=== PATIENT | male | born 1990 | race African-American/Black ===

== ENCOUNTER 2017-04-06 14:07 | Emergency (ER) | payer MEDICAID ==
[2017-04-06 14:20] VITALS: BP 135/61
--- NOTE | 2017-04-06 14:50 | XRAY Preliminary Report ---
Exam: XR HAND 3 VIEW LT IMPRESSION: Fifth metacarpal fracture. [facility] SITE ID: [id number]
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
== END 2017-04-06 15:26 | disposition home or self-care (01) ==
LOC: ED 14:07
DX: S62.347A Nondisplaced fracture of base of fifth metacarpal bone, left hand, initial encounter for closed fracture (principal); W22.09XA Striking against other stationary object, initial encounter; Y92.009 Unspecified place in unspecified non-institutional (private) residence as the place of occurrence of the external cause
CPT/HCPCS: 29125; 99282; 99283

== ENCOUNTER 2017-05-02 10:25 | Emergency (ER) | payer MEDICAID ==
[2017-05-02 10:47] VITALS: BP 110/74
--- NOTE | 2017-05-02 11:19 | ED Physician Documentation ---
History of Present Illness - Stated complaint Stated Complaint: HEAD PX, SINUS CONGESTION - Chief complaint Chief Complaint: General - Additonal information Additional information: hx from pt 26 male to ER with several problems 1) sinus pressure and L face swelling and cough 2) impacted right lower wisdom tooth causing pain X days to a week sent home from work no travel or sick contacts otherwise well Review of Systems Constitutional: reports: Chills, Myalgias. denies: Fever Nose: reports: Congestion, Sinus pressure / pain (and swellign L maxillary region) Throat: reports: Dental pain / toothache. denies: Sore throat Respiratory: reports: Cough Immunocompromised: denies: Immunocompromised PD PAST MEDICAL HISTORY - Past Medical History Past Medical History: No - Past Surgical History Past Surgical History: No - Present Medications Home Medications: Ambulatory Orders Medication Instructions Recorded Confirmed Amox/Clav 875/125 [Augmentin] 1 each PO Q12H #20 tablet 05/02/17 Ibuprofen [Motrin] 400 mg PO Q6H PRN #30 tablet 05/02/17 Oxymetazoline HCl [Afrin] 2 spray NS BID PRN #1 bottle 05/02/17 - Allergies Allergies/Adverse Reactions: Allergies Allergy/AdvReac Type Severity Reaction Status Date / Time No Known Drug Allergies Allergy Verified 04/06/17 14:20 - Social History Does the pt smoke?: Yes Smoking Status: Current every day smoker Does the pt drink ETOH?: Yes Does the pt have substance abuse?: Yes Substance Use and Type: Marijuana - Immunizations Immunizations are current?: No Immunizations: TDAP >10years/unknown - POLST Patient has POLST: No PD ED PE NORMAL - Vitals Vital signs reviewed: Yes - HEENT HEENT: Pharynx benign, Other (L maxillary sinus swollen and TTP). No: Ears normal (dull), Dentition benign (lower left wisodom tooth has come in at a 45 degrree angle and is impaced against 2nd molar and is ttp, no visible abscess no trismus) - Neck Neck: Supple, no meningeal sign - Cardiac Cardiac: RRR - Respiratory Respiratory: No respiratory distress, Clear bilaterally Results - Vitals Vitals: Vital Signs - 24 hr 05/02/17 10:41 Temperature 36.4 C L Heart Rate 57 L Respiratory 16 Rate Blood Pressure 110/74 O2 Saturation 100 Oxygen O2 Source Room air PD MEDICAL DECISION MAKING - ED course ED course: many cases of sinusitis are viral but pt with marked visible L max sinus swelling and also dental pain, possible infection between impacted teeth - so rx ab Departure - Departure Disposition: 01 Home, Self Care Clinical Impression: Pain, dental Sinusitis Qualifiers: Sinusitis location: maxillary Chronicity: acute Recurrence: non-recurrent Qualified Code(s): J01.00 - Acute maxillary sinusitis, unspecified Condition: Good Instructions: ED Sinusitis Abx Tx, ED Tooth Pain Prescriptions: Amox/Clav 875/125 [Augmentin] 1 each PO Q12H #20 tablet Ibuprofen [Motrin] 400 mg PO Q6H PRN #30 tablet PRN Reason: Pain Oxymetazoline HCl [Afrin] 2 spray NS BID PRN #1 bottle PRN Reason: nasal sinus ear congestion Comments: I have prescribed antibiotics and a decongestant spray for your sinus infection And the antibiotic will help[ the dental pain as well if there is an infection between the impacted teeth I prescribed motrin for the pain and you also use orajel available over the counter Please follow up with a dentist such as [facility] in [place] Forms: Activity restrictions
== END 2017-05-02 11:32 | disposition home or self-care (01) ==
LOC: ED 10:25
DX: K08.89 Other specified disorders of teeth and supporting structures (principal); J01.00 Acute maxillary sinusitis, unspecified; K01.1 Impacted teeth; F17.200 Nicotine dependence, unspecified, uncomplicated
CPT/HCPCS: 99283

== ENCOUNTER 2017-11-13 18:53 | Emergency (ER) | payer MEDICAID ==
--- NOTE | 2017-11-13 19:53 | XRAY Report ---
Procedure Date: 11/13/2017 Accession Number: [id number] / [id number] Procedure: XR - Hand 3 View LT CPT Code: FULL RESULT: EXAM: LEFT HAND RADIOGRAPHY EXAM DATE: 11/13/2017 07:30 PM. CLINICAL HISTORY: Fell and landed on left hand while playing football. COMPARISON: 04/06/2017. TECHNIQUE: 3 views. FINDINGS: Bones: No acute fracture. Advanced healing of the previous fifth metacarpal shaft fracture. Joints: Normal. No subluxation. Soft Tissues: No focal soft tissue swelling. IMPRESSION: No acute osseus abnormality. [facility]
--- NOTE | 2017-11-13 21:14 | ED Physician Documentation ---
PD HPI UPPER EXT INJURY - Stated complaint Stated Complaint: LT HAND INJ - Chief complaint Chief Complaint: Ext Problem - History obtained from History obtained from: Patient - History of Present Illness Location: Left, Wrist, Hand Type of injury: Fall (fell playing football few days ago and hand/wrist still hurt.) Timing - onset: How many days ago (few) Timing - duration: Days (fewq) Timing - details: Abrupt onset, Still present Improved by: Rest Worsened by: Moving, Palpating Associated symptoms: Swelling. No: Weakness, Numbness Similar symptoms before: Has not had sx before Recently seen: Not recently seen Review of Systems Skin: denies: Abrasion (s), Laceration (s) Musculoskeletal: reports: Extremity pain Neurologic: denies: Focal weakness, Numbness PD PAST MEDICAL HISTORY - Past Medical History Past Medical History: No - Past Surgical History Past Surgical History: No - Present Medications Home Medications: Ambulatory Orders Medication Instructions Recorded Confirmed Ibuprofen [Motrin] 600 mg PO TID #30 tab 11/13/17 - Allergies Allergies/Adverse Reactions: Allergies Allergy/AdvReac Type Severity Reaction Status Date / Time No Known Drug Allergies Allergy Verified 04/06/17 14:20 - Social History Does the pt smoke?: No Smoking Status: Former smoker Does the pt drink ETOH?: Yes Does the pt have substance abuse?: Yes Substance Use and Type: Marijuana - Immunizations Immunizations are current?: No Immunizations: TDAP >10years/unknown - POLST Patient has POLST: No PD ED PE NORMAL - Vitals Vital signs reviewed: Yes - General General: Alert and oriented X 3, Well developed/nourished, Other - Derm Derm: Normal color, Warm and dry, No rash - Extremities Extremities: Other (left ulnar side hand and ulnar wrist with 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 No noted deformity. ) - Neuro Neuro: Alert and oriented X 3, No motor deficit, No sensory deficit Results - Vitals Vitals: Oxygen O2 Source Room air PD MEDICAL DECISION MAKING - ED course Complexity details: considered differential, d/w patient - Sepsis Event Vital Signs: Oxygen O2 Source Room air Departure - Departure Disposition: 01 Home, Self Care Clinical Impression: Left wrist sprain Qualifiers: Encounter type: initial encounter Qualified Code(s): S63.502A - Unspecified sprain of left wrist, initial encounter Condition: Stable Record reviewed to determine appropriate education?: Yes Instructions: ED Sprain Wrist Prescriptions: Ibuprofen [Motrin] 600 mg PO TID #30 tab Comments: Use a wrist splint for much of the time. It is okay to have it off when resting. Use some anti-inflammatories such as ibuprofen or naproxen 2-3 times a day for the next week. Add Tylenol if needed for pain. Recheck if not improved over the next week or so. Discharge Date/Time: 11/13/17 22:09
[2017-11-13] MEDS ORDERED: IBUPROFEN 600 MG TABLET PO STA (21:48)
[2017-11-13 22:10] VITALS: BP 103/62
== END 2017-11-13 22:09 | disposition home or self-care (01) ==
LOC: ED 18:53
DX: S63.502A Unspecified sprain of left wrist, initial encounter (principal); Z87.891 Personal history of nicotine dependence; W18.30XA Fall on same level, unspecified, initial encounter; Y93.61 Activity, american tackle football
CPT/HCPCS: 73130; 99283; A9270

== ENCOUNTER 2018-03-22 20:46 | Emergency (ER) | payer MEDICAID ==
[2018-03-22 20:54] VITALS: BP 115/62
[2018-03-22] MEDS ORDERED: oxyCODONE/ACET 5/325 Prepack 4 PO STA (20:57)
[2018-03-22] MEDS ORDERED: CLINDAMYCIN 150 MG CAPSULE PO STA (20:57)
--- NOTE | 2018-03-22 20:58 | ED Physician Documentation ---
PD HPI HEENT - Stated complaint Stated Complaint: MOUTH PX - Chief complaint Chief Complaint: Heent - History obtained from History obtained from: Patient - History of Present Illness Timing - onset: Other (2 days of pain from a right mandibular molar without facial swelling or fevers.) Review of Systems Constitutional: denies: Fever, Chills Throat: reports: Dental pain / toothache. denies: Sore throat Cardiac: denies: Chest pain / pressure, Palpitations PD PAST MEDICAL HISTORY - Past Surgical History Past Surgical History: No - Present Medications Home Medications: Ambulatory Orders Medication Instructions Recorded Confirmed Ibuprofen [Motrin] 600 mg PO TID #30 tab 11/13/17 Clindamycin HCl [Clindamycin 300MG 300 mg PO Q6H #28 capsule 03/22/18 CAP] Ibuprofen [Motrin] 800 mg PO Q8H PRN #30 tablet 03/22/18 Oxycodone HCl/Acetaminophen 1 - 2 each PO Q6H PRN #14 tablet 03/22/18 [Percocet 5-325 mg Tablet] - Allergies Allergies/Adverse Reactions: Allergies Allergy/AdvReac Type Severity Reaction Status Date / Time No Known Drug Allergies Allergy Verified 03/22/18 20:54 - Social History Does the pt smoke?: No Smoking Status: Former smoker Does the pt drink ETOH?: Yes Does the pt have substance abuse?: Yes - Immunizations Immunizations are current?: No Immunizations: TDAP >10years/unknown - POLST Patient has POLST: No PD ED PE NORMAL - Vitals Vital signs reviewed: Yes - General General: Alert and oriented X 3, No acute distress - HEENT HEENT: Other (#32 is erupting with overlying pericarditis and a small cavity. Note made that the opposite wisdom tooth also has a large cavity in it. There is no facial swelling, trismus, or sublingual edema.) - Psych Psych: Normal mood, Normal affect Results - Vitals Vitals: Vital Signs - 24 hr 03/22/18 20:49 Temperature 37.1 C Heart Rate 67 Respiratory 16 Rate Blood Pressure 115/62 O2 Saturation 98 Oxygen O2 Source Room air PD MEDICAL DECISION MAKING - ED course ED course: The [place] prescription monitoring program was queried with regard to this patient. No concerning findings were found. Departure - Departure Disposition: 01 Home, Self Care Clinical Impression: Pain, dental Condition: Good Record reviewed to determine appropriate education?: Yes Instructions: ED Tooth Pain Prescriptions: Clindamycin HCl [Clindamycin 300MG CAP] 300 mg PO Q6H #28 capsule Ibuprofen [Motrin] 800 mg PO Q8H PRN #30 tablet PRN Reason: PAIN &/OR FEVER Oxycodone HCl/Acetaminophen [Percocet 5-325 mg Tablet] 1 - 2 each PO Q6H PRN #14 tablet PRN Reason: pain Comments: It is very important that you follow-up with a dentist. When it comes to dental problems like yours, the emergency department can only offer a short-term solution to your long-term problem. A couple of low cost options for dental care include: [facility] in [place], calls [phone] for an appointment Or [facility] in [place], call [phone] for an appointment. Do not drink or drive while taking narcotic pain medication. Note that many narcotic pain relievers also contain Tylenol/acetaminophen. Please ensure that your total dose of acetaminophen from all sources does not exceed 3 g (3000 mg) per day. You may get constipated while on this medication. Take a stool softener such as Colace twice a day while you are on it. Also add an [id number]-hko-[id number] laxative such as senna or MiraLAX on any day that you do not have a bowel movement. If you received a narcotic pain medication or sedative while in the emergency department, do not drive for the next 24 hours.
== END 2018-03-22 21:08 | disposition home or self-care (01) ==
LOC: ED 20:46
DX: K08.89 Other specified disorders of teeth and supporting structures (principal); Z87.891 Personal history of nicotine dependence
CPT/HCPCS: 99283; A9270

== ENCOUNTER 2018-04-28 20:46 | Emergency (ER) | payer MEDICAID ==
[2018-04-28 20:55] VITALS: BP 118/64
--- NOTE | 2018-04-28 21:08 | ED Physician Documentation ---
History of Present Illness - Stated complaint Stated Complaint: TOOTH PX - Chief complaint Chief Complaint: Heent - History obtained from History obtained from: Patient - History of Present Illness Timing: Other (1 month ago) Pain level max: 8 Pain level now: 8 - Additonal information Additional information: 27-year-old male presents to the emergency department with dental pain for the past month. States that his wisdom teeth are growing in sideways. Has not seen a dentist or oral surgeon for this. States he has an appointment on Sunday. No fevers. States pain not controlled with ibuprofen. Nothing makes it better or worse. No facial swelling. Review of Systems Constitutional: denies: Fever, Chills GI: denies: Nausea, Vomiting, Diarrhea Skin: denies: Rash Musculoskeletal: denies: Neck pain, Back pain Neurologic: denies: Headache PD PAST MEDICAL HISTORY - Past Medical History Past Medical History: No Cardiovascular: None Respiratory: None Neuro: None Endocrine/Autoimmune: None GI: None : None HEENT: None Psych: None Musculoskeletal: None Derm: None - Past Surgical History Past Surgical History: No - Present Medications Home Medications: Ambulatory Orders Medication Instructions Recorded Confirmed Ibuprofen [Motrin] 600 mg PO TID #30 tab 11/13/17 Hydrocodone/Acetaminophen 1 - 2 each PO Q6H PRN #8 tablet 04/28/18 [Hydrocodon-Acetaminophen 5-325] Meloxicam [Mobic] 15 mg PO DAILY PRN #20 tablet 04/28/18 - Allergies Allergies/Adverse Reactions: Allergies Allergy/AdvReac Type Severity Reaction Status Date / Time No Known Drug Allergies Allergy Verified 04/28/18 20:55 - Social History Does the pt smoke?: No Smoking Status: Never smoker Does the pt drink ETOH?: Yes Does the pt have substance abuse?: Yes - Immunizations Immunizations are current?: No Immunizations: TDAP >10years/unknown - POLST Patient has POLST: No PD ED PE NORMAL - Vitals Vital signs reviewed: Yes - General General: Alert and oriented X 3, No acute distress - HEENT HEENT: Moist mucous membranes, Pharynx benign, Other (Bilateral lower wisdom teeth are erupting through the skin at an angle to the other teeth. No evidence of infection) - Neck Neck: Supple, no meningeal sign - Derm Derm: Warm and dry - Neuro Neuro: Alert and oriented X 3 Results - Vitals Vitals: Vital Signs - 24 hr 04/28/18 20:52 Temperature 36.6 C Heart Rate 63 Respiratory 18 Rate Blood Pressure 118/64 O2 Saturation 99 Oxygen O2 Source Room air PD MEDICAL DECISION MAKING - ED course Complexity details: reviewed old records, considered differential, d/w patient ED course: 27-year-old male with wisdom teeth that are erupting at an angle impacting the other teeth. Recommend that he follow-up closely with a oral surgeon to have the teeth removed. No signs of infection. Patient counseled regarding signs and symptoms for which I believe and urgent re-evaluation would be necessary. Patient with good understanding of and agreement to plan and is comfortable goi ng home at this time This document was made in part using voice recognition software. While efforts are made to proofread this document, sound alike and grammatical errors may occur. Departure - Departure Disposition: 01 Home, Self Care Clinical Impression: Pain, dental Condition: Good Instructions: ED Tooth Pain Follow-Up: your,dentist as soon as possible [Other] Prescriptions: Hydrocodone/Acetaminophen [Hydrocodon-Acetaminophen 5-325] 1 - 2 each PO Q6H PRN #8 tablet PRN Reason: pain Meloxicam [Mobic] 15 mg PO DAILY PRN #20 tablet PRN Reason: pain Comments: It is very important you follow-up closely with an oral surgeon to remove your impacted wisdom teeth. Follow-up with your dentist as well for further care of your teeth. Do not drink alcohol or drive while on narcotic pain medicine. Note that many narcotic pain relievers also contain tylenol/acetaminophen. Please ensure that your total dose of acetaminophen from all sources does not exceed 3 grams (3000mg) per day. You may constipated on this medication, take a stool softener such as "Colace" twice a day while you are on it. Also recommend a ikqw-ntp-wdeslix laxative such as senna or MiraLAX any day that you do not have a bowel movement. If you received narcotic pain medication in the emergency department, do not drive or operate machinery for the next 24 hours. Discharge Date/Time: 04/28/18 21:19
[2018-04-28] MEDS ORDERED: MELOXICAM 7.5 MG TABLET PO STA (21:13)
== END 2018-04-28 21:19 | disposition home or self-care (01) ==
LOC: ED 20:46
DX: K08.89 Other specified disorders of teeth and supporting structures (principal)
CPT/HCPCS: 99282; 99283; A9270

== ENCOUNTER 2018-12-10 10:34 | Emergency (ER) | payer MEDICAID ==
[2018-12-10] MEDS ORDERED: DEXAMETHASONE 10 MG/ML VIAL PO STA (11:03)
[2018-12-10] MEDS ORDERED: CHERRY SYRUP 10 ML UDC PO ONE (11:03)
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
[2018-12-10 11:43] VITALS: BP 110/61
--- NOTE | 2018-12-10 12:08 | XRAY Report ---
Reason: Trauma Procedure Date: 12/10/2018 Accession Number: [id number] / [id number] Procedure: XR - Wrist 4 View RT CPT Code: FULL RESULT: EXAM: RIGHT WRIST RADIOGRAPHY EXAM DATE: 12/10/2018 11:17 AM. CLINICAL HISTORY: Trauma. Pain COMPARISON: HAND 3 VIEW LT 11/13/2017 7:22 PM. TECHNIQUE: 4 views. FINDINGS: Bones: Normal. No fractures or bone lesions. Joints: Normal. No subluxations. Soft Tissues: Normal. No soft tissue swelling. IMPRESSION: Normal wrist radiography. [facility]
== END 2018-12-10 11:42 | disposition home or self-care (01) ==
LOC: ED 10:34
DX: S60.211A Contusion of right wrist, initial encounter (principal); W22.8XXA Striking against or struck by other objects, initial encounter
CPT/HCPCS: 73110; 99283; 99284; A9270